=== PATIENT | female | born 1990 | race Caucasian/White ===

== ENCOUNTER 2016-08-12 20:43 | Emergency (ER) | payer OTHER ==
[~2016-08-12] VITALS: Ht 154.9 cm; Wt 55.2 kg
[2016-08-12 20:46] VITALS: TEMP 37; Ht 154.9 cm; Wt 55.2 kg
[2016-08-12] MEDS ORDERED: BUDESONIDE 90 MCG INH INH STA (20:57)
[2016-08-12] MEDS ORDERED: ALBUT/IPRATROP 3MG/0.5MG NEB 3 ML VIAL INH STA (20:57)
--- NOTE | 2016-08-12 21:35 | DIAGNOSTIC IMAGING REPORT ---
TWO VIEW CHEST CLINICAL HISTORY: Cough and fever. FINDINGS: PA and lateral chest radiographs are compared to study dated 02/29/2016. The cardiomediastinal silhouette is unremarkable. The lungs and pleural spaces are clear. There is no pneumothorax. The bony thorax appears intact. IMPRESSION: No active disease in the chest. Electronically signed by: Parth Garcia M.D. 08/12/2016 9:34 PM Dictated Date/Time: 08/12/2016 9:33 PM
[2016-08-12] MEDS ORDERED: AZITHROMYCIN 250 MG TAB PO STA (21:45)
[2016-08-12] MEDS ORDERED: AZIT250T PO (21:48)
[2016-08-12 22:00] VITALS: BP 110/72; PULSE 87; O2SAT 96
--- NOTE | 2016-08-12 22:32 | EMERGENCY ROOM VISIT NOTE ---
History Report prepared by Shine: Radha Phan Under the Supervision of: Dr. Armaan Braga M.D. First contact with patient: 20:51 Chief Complaint: SHORTNESS OF BREATH Stated Complaint: SOB, WHEEZING History of Present Illness The patient is a 26 year old female who presents to the Emergency Room with complaints of worsening shortness of breath that started yesterday. The patient states that she has been experiencing coughing and rhinorrhea for the past month. The cough is productive in the morning with brownish greenish sputum. She was seen at Urgent Care for her symptoms and they diagnosed her with a viral infection. She has not been on any antibiotics. The patient has a history of asthma. The patient is not on steroids and she does not have a steroid inhaler at home. She also does not have a nebulizer at home. Additionally, the patient is diabetic and she states that her sugars have been high recently. She states that s her sugars have been in the 300s. The patient denies any chance of . Source of History: patient Onset: yesterday Position: chest Quality: other (shortness of breath) Timing: worsening Associated Symptoms: + cough (productive in the morning ) Note: rhinorrhea Review of Systems See HPI for pertinent positives & negatives. A total of 10 systems reviewed and were otherwise negative. Past Medical & Surgical Medical Problems: (1) ASTHMA, UNSPECIFIED (2) DIAB EUGENE WO COMPL, TYPE I [JUVENILE TYPE], NOT UNCNTRLD (3) DIAB W KETOACIDOSIS, TYPE I [JUVENILE TYPE], UNCONTROLLED (4) DIAB W KETOACIDOSIS, TYPE II OR UNSPEC TYPE, NOT UNCNTRLD (5) DKA, type 1 Family History Diabetes mellitus Heart disease Social History Smoking Status: Never Smoker Alcohol Use: none Drug Use: none Marital Status: single Housing Status: lives alone Occupation Status: employed, student Current/Historical Medications Scheduled Amphetamine-Dextroamphetamine 10MG (Adderall 10MG), 10 MG PO DAILY IN AFTERNOON Amphetamine-Dextroamphetamine 20MG (Adderall Xr 20MG), 20 MG PO QAM Azithromycin (Zithromax), 250 MG PO DAILY Control Pills ( Control Pills), 1 TAB PO DAILY Budesonide (Inhalation) (Pulmicort Flexhaler), 2 PUFFS INH BID Insulin Aspart (novoLOG INSULIN PUMP ), 1 EA N/A UD Vortioxetine HBr (Trintellix), 10 MG PO DAILY Allergies Coded Allergies: Penicillins (Verified Allergy, Severe, ANAPHYLACTIC, 02/28/16) Sulfa Antibiotics (Verified Allergy, Unknown, HIVES, 08/12/16) Physical Exam Vital Signs Date Time Temp Pulse Resp B/P Pulse Ox O2 Delivery O2 Flow Rate FiO2 08/12/16 22:00 87 18 110/72 96 08/12/16 20:46 37.0 92 16 100/65 94 Room Air Physical Exam Constitutional: Vital signs reviewed. Eyes: Pupils are equal round reactive to light. Conjunctiva are noninjected. ENT: Pharynx is clear without erythema or exudate. Mucous membranes are moist. Neck supple without meningeal signs. Respiratory: Diffuse wheezing bilaterally. Breath sounds are equal bilaterally. Cardiovascular: Regular rate and rhythm. No rubs or gallops. GI: Soft, nondistended and nontender. Bowel sounds are present. Musculoskeletal: No peripheral edema. No lower extremity tenderness. Integumentary: No cyanosis. Neurological: The patient is awake and alert. No focal deficits. Psychiatric: Normal affect. Medical Decision & Procedures ER Provider Diagnostic Interpretation: X-ray results as stated below per interpretation by me and the radiologist: TWO VIEW CHEST IMPRESSION: No active disease in the chest. Electronically signed by: Parth Garcia M.D. 08/12/2016 9:34 PM Dictated Date/Time: 08/12/2016 9:33 PM Medications Administered Medications (Trade) Dose Ordered Sig/Ninoska Route Start Time Stop Time Status Last Admin Dose Admin Albuterol/ Ipratropium (Duoneb) 3 ml NOW STAT INH 08/12/16 20:57 08/12/16 20:59 DC 08/12/16 21:07 3 ML Budesonide (Pulmicort Inhaler) 2 puffs ONE STAT INH 08/12/16 20:57 08/12/16 20:59 DC 08/12/16 21:15 2 PUFFS Azithromycin (Zithromax Tab) 500 mg NOW STAT PO 08/12/16 21:45 08/12/16 21:46 DC 08/12/16 21:58 500 MG ED Course 2051: The patient was evaluated in room C10. A complete history and physical exam was performed. 2056: Ordered Budesonide 2 puffs INH, DuoNeb 3 ml INH 2141: Upon reevaluation, the patient appeared to have improvement of her symptoms. On reexamination, she had no wheezing. I discussed toncaleb's findings with her. She verbalized agreement of the treatment plan. She was discharged home. 2144: Ordered Azithromycin 500 mg PO Medical Decision This is a 26-year-old female who presents with shortness of breath and cold symptoms. Differential diagnosis includes acute asthma exacerbation, pneumonia , bronchitis, URI. I did perform a limited focused review of portions of the patient's old chart on the electronic medical record. The patient has had no recent pertinent visits to this hospital. I did evaluate the patient as noted above. She is wheezing diffusely. I did treat her with a DuoNeb. She was also given a Pulmicort inhaler. She declined testing for prior to x-ray. I did order and personally review the patient's chest x-ray as described above. There is no evidence of pneumonia. I did reassess the patient. She has no evidence of wheezing. She is feeling much better. I did discuss the chest x-ray with her. I did recommend antibiotic treatment given the length of her symptoms and the color of her sputum and comorbidity. She was given Zithromax here and discharged home with a prescription for 4 more days of Zithromax. She will continue using the Pulmicort inhaler twice a day. She will follow with her doctor. Impression Primary Impression: Acute asthma exacerbation Additional Impression: Bronchitis Scribe Attestation The scribe's documentation has been prepared under my direct and personally reviewed by me in its entirety. I confirm that the note above accurately reflects all work, treatment, procedures, and medical decision making performed by me. Departure Information Dispostion Home / Self-Care Prescriptions Azithromycin (Zithromax) 250 Mg Tab 250 MG PO DAILY, #4 TAB Prov: Armaan Braga M.D. 08/12/16 Referrals No Doctor, Assigned (PCP) Forms HOME CARE DOCUMENTATION FORM, IMPORTANT VISIT INFORMATION Patient Instructions Asthma - [facility], ED Bronchitis Abx Tx, My [facility] Additional Instructions You have been examined and treated today on an emergency basis only. This is not a substitute for, or an effort to provide, complete comprehensive medical care. It is impossible to recognize and treat all injuries or illnesses in a single emergency department visit. It is therefore important that you follow up closely with your physician. Call as soon as possible for an appointment. Return for worsening symptoms or if you develop fever, vomiting, or any other concerning symptoms. Use Pulmicort twice a day Problem Qualifiers Primary Impression: Acute asthma exacerbation Asthma severity: unspecified severity Qualified Codes: J45.901 - Unspecified asthma with (acute) exacerbation
[2016-08-28] MEDS ORDERED: AMPH10TA2 PO (01:31)
[2016-08-28] MEDS ORDERED: AMPH20CA3 PO (19:34)
[2016-10-03] MEDS ORDERED: BCPILLS PO (02:28)
[2016-10-03] MEDS ORDERED: AMPH30CA3 PO (17:34)
[2016-10-03] MEDS ORDERED: PROP10TA7 PO (17:34)
[2016-10-03] MEDS ORDERED: VORT1TAB PO (17:34)
[2016-10-03] MEDS ORDERED: PRAZ2CAP PO (17:34)
[2016-10-03] MEDS ORDERED: INSPMPNVLG (19:34)
== END 2016-08-12 22:00 | disposition home or self-care (01) ==
LOC: C.EDB 20:45 → C.EDC 22:00
DX: J45.901 Unspecified asthma with (acute) exacerbation (principal); J40 Bronchitis, not specified as acute or chronic; E10.9 Type 1 diabetes mellitus without complications; Z79.4 Long term (current) use of insulin; Z79.899 Other long term (current) drug therapy; Z88.0 Allergy status to penicillin; Z88.2 Allergy status to sulfonamides; Z83.3 Family history of diabetes mellitus; Z82.49 Family history of ischemic heart disease and other diseases of the circulatory system

== ENCOUNTER 2016-08-28 19:52 | Emergency (ER) | payer OTHER ==
[~2016-08-28] VITALS: Ht 154.9 cm; Wt 54.2 kg
[~2016-08-28 19:52] MED LIST: AMPH10TA2 PO; AMPH20CA3 PO; AZIT250T PO
[2016-08-28 20:01] VITALS: Ht 154.9 cm; Wt 54.2 kg
[2016-08-28] MEDS ORDERED: AMOX250C3 PO (20:42)
[2016-08-28] MEDS ORDERED: ALBUTEROL 0.083% NEBU SOLN 3 ML VIAL INH STA (20:53)
[2016-08-28] MEDS ORDERED: SODIUM CHLORIDE 0.9% 1000ML 2,000 ML IV STA (20:53)
--- NOTE | 2016-08-28 21:10 | DIAGNOSTIC IMAGING REPORT ---
SINGLE VIEW CHEST CLINICAL HISTORY: Cough FINDINGS: An AP, portable, upright chest radiograph is compared to study dated 08/12/2016. The cardiomediastinal silhouette is unremarkable. The lungs and pleural spaces are clear. No pneumothorax is seen. The bony thorax is grossly intact. IMPRESSION: No active disease in the chest. Electronically signed by: Parth Garcia M.D. 08/28/2016 9:09 PM Dictated Date/Time: 08/28/2016 9:09 PM
[2016-08-28 21:16] VITALS: TEMP 37.3
[2016-08-28] MEDS ORDERED: VORT10TA12 PO (21:22)
[2016-08-28] MEDS ORDERED: BUDE180I INH (21:22)
[2016-08-28 21:38] LABS: BASO % 0.3 %; BASO ABS # 0.03 K/uL (0-0.2); COMPLETE YES; EOS % 3.1 %; HEMATOCRIT 37.9 % (37-47); IG% 0.4 %; LYMPH % 13.9 %; LYMPH ABS # 1.65 K/uL (1.2-3.4); MEAN CELL VOLUME 92.2 fL (80-100); MEAN CORPUSCULAR HEMOGLOBIN 32.6 pg (25-34); MEAN CORPUSCULAR HGB CONC 35.4 g/dl (32-36); MEAN PLATELET VOLUME 10.2 fL (7.4-10.4); MONO % 9.6 %; NEUT % 72.7 %; PLATELET COUNT 214 K/uL (130-400); RED BLOOD COUNT 4.11 M/uL (4.2-5.4); WHITE BLOOD COUNT 11.83 K/uL (4.8-10.8)
[2016-08-28] MEDS ORDERED: NovoLIN-R INSULIN PER UNIT CHARGE SC STA (21:42)
[2016-08-28 21:58] LABS: VEN BLOOD GAS BASE EXCESS -0.6 mmol/L; VENOUS BLOOD GAS PCO2 51 mmHg (38.0-50.0); VENOUS BLOOD GAS PO2 30 mmHg
[2016-08-28 21:59] LABS: VEN BLD GAS O2 SATURATION < 60.0 %
[2016-08-28 22:02] LABS: ALKALINE PHOSPHATASE 106 U/L (45-117); ALT/SGPT 19 U/L (12-78); AST/SGOT 9 U/L (15-37); BLOOD UREA NITROGEN 14 mg/dl (7-18); BUN/CREATININE RATIO 16.1 (10-20); CALCIUM 8.8 mg/dl (8.5-10.1); CARBON DIOXIDE 23 mmol/L (21-32); CHLORIDE 102 mmol/L (98-107); CREATININE 0.88 mg/dl (0.60-1.20); GLUCOSE 564 mg/dl (70-99); POTASSIUM 4.3 mmol/L (3.5-5.1); SODIUM 134 mmol/L (136-145)
[2016-08-28 22:14] LABS: BETA-HYDROXYBUTYRATE 1.09 mg/dL (0.2-2.81)
[2016-08-28 22:51] LABS: URINE APPEARANCE CLEAR (CLEAR); URINE BILIRUBIN NEG (NEG); URINE COLOR YELLOW; URINE EPITHELIAL CELL AUTO 20-30 /lpf (0-5); URINE NITRITE NEG (NEG); URINE PH 6.5 (4.5-7.5); URINE SPECIFIC GRAVITY 1.033 (1.000-1.030); UROBILINOGEN NEG (NEG)
[2016-08-28 22:54] LABS: MANUAL MICROSCOPIC REQUIRED? NO; REVIEW REQ? NO
[2016-08-28 23:09] VITALS: BP 128/71; PULSE 71; O2SAT 98
--- NOTE | 2016-08-28 23:09 | EMERGENCY ROOM VISIT NOTE ---
History Report prepared by Shine: Hussein Peña Under the Supervision of: Dr. Abhijit Mcintyre D.O. First contact with patient: 20:45 Chief Complaint: ILLNESS Stated Complaint: SINUSES, WHEEZING, CHEST TIGHTNESS, HYPERGLYCEMIA History of Present Illness The patient is a 26 year old female who presents to the Emergency Room with complaints of a persistent illness beginning about 10 days ago. She notes she was seen by urgent care yesterday and was put on Augmentin. She complains of shortness of breath with some wheezing, chest pain since yesterday, and notes her blood sugar was elevated. She admits to having Type 1 diabetes, and took a bolus of 5.5 units of insulin about 1 hour ago. The patient notes she has not been eating much, but has been urinating frequently. She denies having any pain or burning with urination. She admits to also having abdominal pain, but denies having any fever or back pain. She reports her last menstrual period was 3 weeks ago. The patient reports having a history of asthma, but does not take steroids. She has never been intubated for her asthma, but was hospitalized once as a child. She adds she has a past history of DKA. She denies any nausea or vomiting. Source of History: patient Onset: 10 days ago Position: other (global) Quality: other (illness) Timing: other (persistent) Associated Symptoms: + SOB, + abdominal pain, + chest pain, + urinary symptoms (increased urination, butnot burning or pain), No back pain, No fevers Review of Systems See HPI for pertinent positives & negatives. A total of 10 systems reviewed and were otherwise negative. Past Medical & Surgical Medical Problems: (1) ASTHMA, UNSPECIFIED (2) DIAB EUGENE WO COMPL, TYPE I [JUVENILE TYPE], NOT UNCNTRLD (3) DIAB W KETOACIDOSIS, TYPE I [JUVENILE TYPE], UNCONTROLLED (4) DIAB W KETOACIDOSIS, TYPE II OR UNSPEC TYPE, NOT UNCNTRLD (5) DKA, type 1 Family History Diabetes mellitus Heart disease Social History Smoking Status: Never Smoker Alcohol Use: none Drug Use: none Marital Status: single Housing Status: lives alone Occupation Status: employed, student Current/Historical Medications Scheduled Amoxicillin (Amoxil), 1 CAP PO BID Amphetamine-Dextroamphetamine 10MG (Adderall 10MG), 10 MG PO DAILY IN AFTERNOON Amphetamine-Dextroamphetamine 20MG (Adderall Xr 20MG), 20 MG PO QAM Control Pills ( Control Pills), 1 TAB PO DAILY Budesonide (Inhalation) (Pulmicort Flexhaler), 2 PUFFS INH BID Insulin Aspart (novoLOG INSULIN PUMP ), 1 EA N/A UD Vortioxetine HBr (Trintellix), 10 MG PO DAILY Allergies Coded Allergies: Penicillins (Verified Allergy, Severe, ANAPHYLACTIC, 02/28/16) Sulfa Antibiotics (Verified Allergy, Unknown, HIVES, 08/12/16) Physical Exam Vital Signs Date Time Temp Pulse Resp B/P Pulse Ox O2 Delivery O2 Flow Rate FiO2 08/28/16 23:09 71 18 128/71 98 08/28/16 21:27 73 08/28/16 21:16 37.3 76 18 134/79 98 Room Air 08/28/16 20:01 37.0 79 18 127/80 96 Room Air Physical Exam GENERAL: Sitting in bed, non-productive cough, no acute distress, non-toxic HEAD: Mild tenderness to the maxillary and frontal sinuses. EARS: TMs clear bilaterally. EYE EXAM: normal conjunctiva OROPHARYNX: no exudate, no erythema, lips, buccal mucosa, and tongue normal and mucous membranes are moist NECK: supple, no nuchal rigidity, no adenopathy, non-tender LUNGS: Wheezing in bilateral lung haji. Normal chest wall mechanics HEART: no murmurs, S1 normal and S2 normal ABDOMEN: abdomen soft, non-tender, normo-active bowel sounds, no masses, no rebound or guarding. BACK: Back is symmetrical on inspection and there is no deformity, no midline tenderness, no CVA tenderness. SKIN: no rashes and no bruising UPPER EXTREMITIES: upper extremities are grossly normal. LOWER EXTREMITIES: No pitting edema. Calves equal bilaterally. NEURO EXAM: Normal sensorium, cranial nerves II-XII grossly intact, normal speech, no gross weakness of arms, no gross weakness of legs. Gross sensation intact. Medical Decision & Procedures ER Provider Diagnostic Interpretation: Radiology results have been interpreted by the radiologist and reviewed by me. SINGLE VIEW CHEST FINDINGS: An AP, portable, upright chest radiograph is compared to study dated 08/12/2016. The cardiomediastinal silhouette is unremarkable. The lungs and pleural spaces are clear. No pneumothorax is seen. The bony thorax is grossly intact. IMPRESSION: No active disease in the chest. Electronically signed by: Parth Garcia M.D. 08/28/2016 9:09 PM Dictated Date/Time: 08/28/2016 9:09 PM Laboratory Results 08/28/16 21:16 Red Blood Count 4.11, Mean Corpuscular Volume 92.2, Mean Corpuscular Hemoglobin 32.6, Mean Corpuscular Hemoglobin Concent 35.4, Mean Platelet Volume 10.2, Neutrophils (%) (Auto) 72.7, Lymphocytes (%) (Auto) 13.9, Monocytes (%) (Auto) 9.6, Eosinophils (%) (Auto) 3.1, Basophils (%) (Auto) 0.3, Neutrophils # (Auto) 8.60, Lymphocytes # (Auto) 1.65, Monocytes # (Auto) 1.13, Eosinophils # (Auto) 0.37, Basophils # (Auto) 0.03 08/28/16 21:16 Test 08/28/16 21:16 08/28/16 21:18 08/28/16 21:49 08/28/16 22:20 White Blood Count 11.83 K/uL (4.8-10.8) Red Blood Count 4.11 M/uL (4.2-5.4) Hemoglobin 13.4 g/dL (12.0-16.0) Hematocrit 37.9 % (37-47) Mean Corpuscular Volume 92.2 fL (80-100) Mean Corpuscular Hemoglobin 32.6 pg (25-34) Mean Corpuscular Hemoglobin Concent 35.4 g/dl (32-36) Platelet Count 214 K/uL (130-400) Mean Platelet Volume 10.2 fL (7.4-10.4) Neutrophils (%) (Auto) 72.7 % Lymphocytes (%) (Auto) 13.9 % Monocytes (%) (Auto) 9.6 % Eosinophils (%) (Auto) 3.1 % Basophils (%) (Auto) 0.3 % Neutrophils # (Auto) 8.60 K/uL (1.4-6.5) Lymphocytes # (Auto) 1.65 K/uL (1.2-3.4) Monocytes # (Auto) 1.13 K/uL (0.11-0.59) Eosinophils # (Auto) 0.37 K/uL (0-0.5) Basophils # (Auto) 0.03 K/uL (0-0.2) RDW Standard Deviation 42.4 fL (36.4-46.3) RDW Coefficient of Variation 12.6 % (11.5-14.5) Immature Granulocyte % (Auto) 0.4 % Immature Granulocyte # (Auto) 0.05 K/uL (0.00-0.02) Anion Gap 9.0 mmol/L (3-11) Est Creatinine Clear Calc Drug Dose 74.3 ml/min Estimated GFR () 106.6 Estimated GFR (Non- 92.0 BUN/Creatinine Ratio 16.1 (10-20) Calcium Level 8.8 mg/dl (8.5-10.1) Total Bilirubin 0.2 mg/dl (0.2-1) Direct Bilirubin < 0.1 mg/dl (0-0.2) Aspartate Amino Transf (AST/SGOT) 9 U/L (15-37) Alanine Aminotransferase (ALT/SGPT) 19 U/L (12-78) Alkaline Phosphatase 106 U/L (45-117) Troponin I < 0.015 ng/ml (0-0.045) Total Protein 7.1 gm/dl (6.4-8.2) Albumin 3.3 gm/dl (3.4-5.0) Beta-Hydroxybutyric Acid 1.09 mg/dL (0.2-2.81) Influenza Type A Antigen Neg for Influ A (NEG) Influenza Type B Antigen Neg for Influ B (NEG) Venous Blood pH 7.33 (7.36-7.41) Venous Blood Partial Pressure CO2 51 mmHg (38.0-50.0) Venous Blood Partial Pressure O2 30 mmHg Venous Blood HCO3 26 mmol/L Venous Blood Oxygen Saturation < 60.0 % Venous Blood Base Excess -0.6 mmol/L Urine Color YELLOW Urine Appearance CLEAR (CLEAR) Urine pH 6.5 (4.5-7.5) Urine Specific [place] 1.033 (1.000-1.030) Urine Protein NEG (NEG) Urine Glucose (UA) 3+ (NEG) Urine Ketones NEG (NEG) Urine Occult Blood NEG (NEG) Urine Nitrite NEG (NEG) Urine Bilirubin NEG (NEG) Urine Urobilinogen NEG (NEG) Urine Leukocyte Esterase NEG (NEG) Urine WBC (Auto) 1-5 /hpf (0-5) Urine RBC (Auto) 0-4 /hpf (0-4) Urine Hyaline Casts (Auto) 1-5 /lpf (0-5) Urine Epithelial Cells (Auto) 20-30 /lpf (0-5) Urine Bacteria (Auto) NEG (NEG) Test 08/28/16 22:44 Bedside Glucose 487 mg/dl (70-90) Laboratory results per my review. Medications Administered Medications (Trade) Dose Ordered Sig/Ninoska Route Start Time Stop Time Status Last Admin Dose Admin Albuterol Sulfate 2.5 mg 2.5 mg NOW STAT INH 08/28/16 20:53 08/28/16 20:55 DC 08/28/16 21:28 2.5 MG Sodium Chloride (Nss 1000ml) 2,000 ml @ 999 mls/hr Q2H1M STAT IV 08/28/16 20:53 08/28/16 22:53 DC 08/28/16 20:53 999 MLS/HR Insulin Human Regular (novoLIN-R U-100 PER UNIT) 10 units NOW STAT SC 08/28/16 21:42 08/28/16 21:44 DC 08/28/16 22:05 10 UNITS Albuterol (Ventolin Hfa Inhaler) 2 puffs NOW ONCE INH 08/28/16 23:15 08/28/16 23:16 08/28/16 23:06 2 PUFFS ECG Indication: other (illness) Rate (beats per minute): 73 Rhythm: sinus rhythm Findings: no ectopy, other (normal axis; septal Q wave) Comparison ECG Date: 09/13/15 Change: [place] has not changed. New Q wave in v2. ED Course ED COURSE: Vital signs were reviewed and showed normal. The patients medical record was reviewed The above diagnostic studies were performed and reviewed. ED treatments and interventions as stated above. 2046: The patient was evaluated in room C1A. A complete history and physical examination was performed. 2052: Ordered NSS 2,000 ml @ 999 mls/hr IV, and Albuterol Sulfate 2.5 mg INH. 2141: Ordered Insulin Human Regular 10 units SC. 2299: Upon reevaluation, the patient is doing well.I discussed my findings with the patient and she understands and agrees with the treatment plan. Based on the patients age, coexisting illnesses, exam and lab findings the decision to treat as an outpatient was made. The patient remained stable while under my care. The patient appeared well at the time of discharge. Medical Decision Differential diagnoses includes but is not limited to pneumonia, bronchitis, COPD/Asthma exacerbation, pneumothorax, pulmonary embolism, congestive heart failure, acute coronary syndrome Patient is a 26-year-old female who presents the ER for congestion which has now tracked down to her chest which is a history of asthma and now has a nonproductive cough and shortness of breath. She notes that she does have some chest pain which has been present since this morning. Vitals were unremarkable. She does have bilateral wheezing which improved with a neb treatment. No significant leukocytosis or anemia. BMP was unremarkable along with LFTs, bilirubin and troponin. BSG was 564. This trended down to 480. She is given 2 L of fluid and 10 units of subcutaneous insulin. UA shows no infection or ketones. No anion gap. Influenza was negative. She is no nausea vomiting. PH is 7.33 but her CO2 is 51 and this is compensated. She is not in DKA or HHNK. Patient was discharged to continue her Augmentin and follow-up with her PCP is now patient. She was given an inhaler prior to discharge as she has run out. Discussed with Pt concerning signs and symptoms to watch out for. Pt was instructed to follow up with their PCP and discussed with the patient their option to return to the ED at anytime for persistent or worsening symptoms. The appropriate anticipatory guidance and out-patient management, including indications for return to the emergency department, were explained at length to the patient and understood. Impression Primary Impression: Bronchitis Additional Impression: Hyperglycemia Scribe Attestation The scribe's documentation has been prepared under my direction and personally reviewed by me in its entirety. I confirm that the note above accurately reflects all work, treatment, procedures, and medical decision making performed by me. Departure Information Dispostion Home / Self-Care Referrals Abby Leach D.O. (PCP) Patient Instructions Asthma - [facility], ED Hyperglycemia Diabetic, My [facility] Additional Instructions Please follow up with your primary care doctor with in the next 24 hours. Any worsening of your symptoms, please return to the ED immediately. This includes fevers greater than 100.4, worsening shortness of breath, chest pain, passing out, uncontrolled blood sugars, or any other concerning signs or symptoms from your standpoint. Please continue your previous perception for antibiotics. Please also continue your inhalers and nebulizers. Problem Qualifiers
[2016-08-28] MEDS ORDERED: ALBUTEROL HFA 8 GM INHALER INH ONE (23:15)
[2016-10-03] MEDS ORDERED: BCPILLS PO (02:28)
[2016-10-03] MEDS ORDERED: PROP10TA7 PO (17:34)
[2016-10-03] MEDS ORDERED: AMPH30CA3 PO (17:34)
[2016-10-03] MEDS ORDERED: PRAZ2CAP PO (17:34)
[2016-10-03] MEDS ORDERED: VORT1TAB PO (17:34)
[2016-10-03] MEDS ORDERED: INSPMPNVLG (19:34)
== END 2016-08-28 23:10 | disposition home or self-care (01) ==
LOC: C.EDB 19:53 → C.EDC 23:10
DX: J40 Bronchitis, not specified as acute or chronic (principal); E10.65 Type 1 diabetes mellitus with hyperglycemia; Z79.4 Long term (current) use of insulin; Z79.899 Other long term (current) drug therapy; Z88.0 Allergy status to penicillin; Z88.2 Allergy status to sulfonamides; Z83.3 Family history of diabetes mellitus; Z82.49 Family history of ischemic heart disease and other diseases of the circulatory system

== ENCOUNTER → 2016-09-01 | Outpatient (CLI) | payer OTHER ==
[~2016-09-01] MED LIST changes: +AMOX250C3 PO; +AMPH30CA3 PO; -AZIT250T PO; +BCPILLS PO; +BUDE180I INH; +CLIN300C2 PO; +DOXY1CAP PO; +INSPMPNVLG; +ONDA4TAB46 PO; +PRAZ2CAP PO; +PROP10TA7 PO; +RALT400T PO; +TRVHP PO; +VORT10TA12 PO; +VORT1TAB PO
--- NOTE | 2016-09-01 17:47 | DIAGNOSTIC IMAGING REPORT ---
CHEST 2 VIEWS ROUTINE CLINICAL HISTORY: Cough. COMPARISON STUDY: Chest radiograph August 28, 2016. FINDINGS: Lung volumes are normal. Lungs are clear. There is no pneumothorax or pleural effusion. Cardiac size is normal. Mediastinal contours are normal. There is no evidence of pulmonary edema. IMPRESSION: No acute cardiopulmonary findings. Electronically signed by: Aleksandr Ellis M.D. 09/01/2016 5:46 PM Dictated Date/Time: 09/01/2016 5:46 PM
== END | disposition home or self-care (01) ==
LOC: C.RAD 17:26
PROVIDERS: ATTEND Physician Assistant Medical
DX: R05 Cough (principal)

== ENCOUNTER 2016-10-06 23:15 | Emergency (ER) | payer OTHER ==
[~2016-10-06] VITALS: Ht 154.9 cm; Wt 52.3 kg
[~2016-10-06 23:15] MED LIST changes: -AMOX250C3 PO; -AMPH10TA2 PO; -AMPH20CA3 PO; -BUDE180I INH; -CLIN300C2 PO; -DOXY1CAP PO; -ONDA4TAB46 PO; -RALT400T PO; -TRVHP PO; -VORT10TA12 PO
[2016-10-06 23:24] VITALS: Ht 154.9 cm; Wt 52.3 kg
[2016-10-07 00:28] VITALS: TEMP 37
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
[2016-10-07] MEDS ORDERED: DOXYCYCLINE HYCLATE 100 MG CAP PO STA (02:54)
[2016-10-07] MEDS ORDERED: LEVONORGESTREL (EMERGENCY OC) 1.5 MG TAB PO STA (02:54)
[2016-10-07] MEDS ORDERED: CIPROFLOXACIN 500 MG TAB PO STA (02:55)
[2016-10-07] MEDS ORDERED: DOXY1CAP PO (03:03)
[2016-10-07] MEDS ORDERED: HIV POST EXPOSURE PROPHYLAXIS KIT STA (03:04)
[2016-10-07] MEDS ORDERED: ONDA4TAB46 PO (03:05)
[2016-10-07] MEDS ORDERED: RALT400T PO (03:05)
[2016-10-07] MEDS ORDERED: ONDANSETRON 4MG OD TAB PO STA (03:05)
[2016-10-07] MEDS ORDERED: TRVHP PO (03:05)
[2016-10-07 04:18] VITALS: BP 128/86; PULSE 78; O2SAT 98
== END 2016-10-07 04:19 | disposition home or self-care (01) ==
LOC: C.EDB 23:16 → C.EDC 10-07 04:19
DX: Z04.41 Encounter for examination and observation following alleged adult rape (principal); E11.9 Type 2 diabetes mellitus without complications; J45.909 Unspecified asthma, uncomplicated; F17.200 Nicotine dependence, unspecified, uncomplicated; Z79.899 Other long term (current) drug therapy; Z88.0 Allergy status to penicillin; Z88.2 Allergy status to sulfonamides; Z83.3 Family history of diabetes mellitus; Z82.49 Family history of ischemic heart disease and other diseases of the circulatory system

== ENCOUNTER 2017-02-05 12:40 | Emergency (ER) | payer OTHER ==
[~2017-02-05] VITALS: Ht 154.9 cm; Wt 55.9 kg
[~2017-02-05 12:40] MED LIST changes: +DOXY1CAP PO; +ONDA4TAB46 PO; +RALT400T PO; +TRVHP PO
[2017-02-05 12:46] VITALS: TEMP 37; Ht 154.9 cm; Wt 55.9 kg
[2017-02-05] MEDS ORDERED: CLIN300C2 PO (13:12)
[2017-02-05 13:19] VITALS: BP 122/76; PULSE 83; O2SAT 98
--- NOTE | 2017-02-05 13:22 | EMERGENCY ROOM VISIT NOTE ---
History First contact with patient: 13:04 Chief Complaint: OTHER COMPLAINT Stated Complaint: SENSITIVE INFECTED FACIAL CYST History of Present Illness The patient is a 26 year old female who presents to the Emergency Room with complaints of right-sided facial pain for the past 3 weeks. The patient has had infected cysts in the past and this feels similar. She has followed up with her primary care physician regarding this, and completed a seven-day course of doxycycline with only minimal improvement of symptoms. The patient went to an urgent care clinic today where she was referred to dermatology, but does not have an appointment until April. The patient has not had fever or chills. She is diabetic. She rates her overall discomfort a 7/10. Review of Systems More than 10 systems were reviewed and otherwise negative with the exception of history of present illness. Past Medical/Surgical History Medical Problems: (1) ASTHMA, UNSPECIFIED (2) DIAB EUGENE WO COMPL, TYPE I [JUVENILE TYPE], NOT UNCNTRLD (3) DIAB W KETOACIDOSIS, TYPE I [JUVENILE TYPE], UNCONTROLLED (4) DIAB W KETOACIDOSIS, TYPE II OR UNSPEC TYPE, NOT UNCNTRLD (5) DKA, type 1 Family History Diabetes mellitus Heart disease Social History Smoking Status: Current Every Day Smoker Alcohol Use: none Drug Use: none Marital Status: single Housing Status: lives alone Occupation Status: employed, student Current/Historical Medications Scheduled Amphetamine-Dextroamphetamine 30MG (Adderall Xr 30MG), 30 MG PO QAM Control Pills ( Control Pills), 1 TAB PO DAILY Clindamycin Hcl (Cleocin), 300 MG PO QID Insulin Aspart (novoLOG INSULIN PUMP ), 1 EA N/A UD Vortioxetine HBr (Trintellix), 5 MG PO DAILY Scheduled PRN Ondansetron Hcl (Zofran), 4 MG PO Q6 PRN for Nausea Physical Exam Vital Signs Date Time Temp Pulse Resp B/P (MAP) Pulse Ox O2 Delivery O2 Flow Rate FiO2 02/05/17 12:46 37.0 93 16 127/78 98 Physical Exam VITALS: Vitals are noted on the nurse's note and reviewed by myself. Vital signs stable. GENERAL: Well-developed, well-nourished, white female, who is in no acute distress and resting comfortably. Patient is cooperative with the examination. HEART: Regular rate and rhythm without murmurs gallops or rubs. LUNGS: Clear to auscultation bilaterally without wheezes, rales or rhonchi. No retractions or accessory muscle use. NEURO: Patient was alert and oriented to person place and time. CN II through XII grossly intact. SKIN: The skin was with a right sided area of inflammation and tenderness measuring approximately 1.0 cm in diameter. Clinically this seems most likely an infected cyst without distinct abscess or fluctuance. There is no drainage. No appreciable lymphadenopathy. Medical Decision & Procedures ED Course Physical exam and history were performed. Nursing notes, EMR, and Medication List were personally reviewed. Patient appears to have a right-sided facial infection, likely from an infected cyst. This is been in place for roughly 3 weeks according to the patient. I do not feel obvious fluctuance and she has failed doxycycline. She is allergic to penicillin and sulfa, but has evidently tolerated clindamycin in the past. She will be started on this medication and given instructions to eat yogurt or take probiotics. I did discuss the possibility of C. difficile infection while on multiple antibiotics including clindamycin. The patient will also be given information for plastic surgery, as she may need excision of the cyst. The patient was otherwise asked to follow with her PCP or dermatology. She was invited back to the ER with any new, worsening, or concerning symptoms. The chart was completed utilizing [employer] Speech Voice Recognition Software. Grammatical errors, random word insertions, pronoun errors, and incomplete sentences are an occasional consequence of this system due to software limitations, ambient noise, and hardware issues. Any formal questions or concerns about the content, text, or information contained within the body of this dictation should be directly addressed to the provider for clarification. . Medical Decision Differential diagnosis: Etiologies such as cellulitis, abscess, MRSA infection, DVT, necrotizing fasciitis, dermatitis, drug eruption, as well as others were entertained.. Impression Primary Impression: Facial infection Departure Information Dispostion Home / Self-Care Condition GOOD Prescriptions Clindamycin Hcl (CLEOCIN) 300 Mg Cap 300 MG PO QID for 10 Days, #40 CAP Prov: Reece Bhandari PA-C 02/05/17 Referrals No Doctor, Assigned April Sanchez MD Forms HOME CARE DOCUMENTATION FORM, IMPORTANT VISIT INFORMATION Patient Instructions [facility] Additional Instructions You were seen and evaluated today on an emergency basis only. This is not a substitute for, or an effort to provide, complete comprehensive medical care. It is not possible to recognize and treat all injuries or illnesses in a single emergency department visit. For this reason it is recommended that you followup with your [employer] Machine Feeder or plastic surgery, Dr. Sanchez's office, for ongoing care and evaluation. For baseline pain relief you may alternate ibuprofen and acetaminophen every 4 hours for pain control. Take 600 mg ibuprofen (Advil) and then 4 hours later take 1000 mg acetaminophen (Tylenol). Do not take more than 3000 mg acetaminophen in a single day. Take clindamycin 300 mg 4 times daily for the next 10 days. This medicine can cause an upset stomach. We do recommend eating yogurt or taking a probiotic while on this medication. If you have severe diarrhea after starting this medicine please seek additional medical attention. You may apply warm compress 20 minutes on and 20 minutes off to the area. You are welcome to return to the emergency department anytime with new, worsening, or concerning symptoms.
== END 2017-02-05 13:20 | disposition home or self-care (01) ==
LOC: C.EDB 12:41 → C.EDD 13:20
DX: L08.9 Local infection of the skin and subcutaneous tissue, unspecified (principal); E10.9 Type 1 diabetes mellitus without complications; J45.909 Unspecified asthma, uncomplicated; Z83.3 Family history of diabetes mellitus; F17.210 Nicotine dependence, cigarettes, uncomplicated; Z79.3 Long term (current) use of hormonal contraceptives; Z79.4 Long term (current) use of insulin; Z79.899 Other long term (current) drug therapy

== ENCOUNTER 2017-08-24 02:13 | Emergency (ER) | payer OTHER ==
[~2017-08-24] VITALS: Ht 154.9 cm; Wt 49.8 kg
[~2017-08-24 02:13] MED LIST changes: -DOXY1CAP PO; +INSULIN GLARGINE SC SCH; +INSULIN GLARGINE SOLOSTAR 100 UNITS/ML 3 ML PEN SC SCH; -ONDA4TAB46 PO; -PRAZ2CAP PO; -PROP10TA7 PO; -RALT400T PO; -TRVHP PO
[2017-08-24 02:16] VITALS: Ht 154.9 cm; Wt 49.8 kg
[2017-08-24] MEDS ORDERED: SODIUM CHLORIDE 0.9% 1000ML 1,000 ML IV STA ×2 (02:29→04:00)
[2017-08-24 02:46] LABS: BASO % 0.1 %; BASO ABS # 0.01 K/uL (0-0.2); EOS % 0.1 %; EOS ABS # 0.01 K/uL (0-0.5); HEMOGLOBIN 14.4 g/dL (12.0-16.0); IG# 0.05 K/uL (0.00-0.02); LYMPH % 11.8 %; LYMPH ABS # 1.76 K/uL (1.2-3.4); MEAN CELL VOLUME 89.4 fL (80-100); MEAN CORPUSCULAR HGB CONC 36.9 g/dl (32-36); MEAN PLATELET VOLUME 10.2 fL (7.4-10.4); MONO % 9.1 %; MONO ABS # 1.36 K/uL (0.11-0.59); NEUT % 78.6 %; NEUT ABS # 11.69 K/uL (1.4-6.5); PLATELET COUNT 301 K/uL (130-400); RED CELL DISTRIBUTION WIDTH CV 11.6 % (11.5-14.5); RED CELL DISTRIBUTION WIDTH SD 37.7 fL (36.4-46.3); WHITE BLOOD COUNT 14.88 K/uL (4.8-10.8)
[2017-08-24 03:12] LABS: ALBUMIN 3.9 gm/dl (3.4-5.0); ALKALINE PHOSPHATASE 183 U/L (45-117); ALT/SGPT 26 U/L (12-78); AST/SGOT 13 U/L (15-37); BLOOD UREA NITROGEN 15 mg/dl (7-18); CALCIUM 9.3 mg/dl (8.5-10.1); CARBON DIOXIDE 24 mmol/L (21-32); CREATININE 0.96 mg/dl (0.60-1.20); GLUCOSE 563 mg/dl (70-99); LIPASE 107 U/L (73-393); SODIUM 129 mmol/L (136-145); TOTAL PROTEIN 7.6 gm/dl (6.4-8.2)
[2017-08-24] MEDS ORDERED: LANTUS PER UNIT CHARGE SQ STA ×2 (03:46)
[2017-08-24] MEDS ORDERED: INSULIN GLARGINE SC STA (03:55)
[2017-08-24] MEDS ORDERED: INSULIN ASPART SC STA (04:00)
[2017-08-24] MEDS ORDERED: INSULIN GLARGINE SOLOSTAR 100 UNITS/ML 3 ML PEN SC STA (04:06)
--- NOTE | 2017-08-24 04:59 | EMERGENCY ROOM VISIT NOTE ---
History First contact with patient: 02:50 Chief Complaint: HYPERGLYCEMIA Stated Complaint: FORGOT LANTUS,HI BG+KETONES FOR 48+HRS,BRONCHITIS Nursing Triage Summary: Pt ambulatory to triage reporting high blood sugar. Meter reading HIGH at home. pt reports she is visiting family from out of town and forgot to bring her Lantus and did not take it tonight. Pt states she was using insulin pump but "ran out of supplies, so switched yesterday". Pt reports she is on steriods for asthma currently and has been feeling "ill" for four days. Reports small-moderate ketones in urine for last 2 days. History of Present Illness The patient is a 27 year old female who presents to the Emergency Room with complaints of high blood sugars. The patient states that her blood sugars have been running high for the past 3-4 days, and her meter has read "high" today. She has had urine ketones for the past 2 days. The patient states she is currently on prednisone and has taken this for 3-4 days for an upper respiratory infection. She is additionally taking an antibiotic for this. She states that her respiratory symptoms have improved considerably. However, the prednisone seems to be increasing her blood sugars. She also states that she typically uses an insulin pump, however due to a recent move and insurance issues switched to using NovoLog pens. She is in town from [place] and forgot her Lantus there. She has increased her NovoLog dosage today but has still been unable to control her blood sugars. She denies abdominal pain, vomiting or respiratory difficulties. She denies fever/chills or urinary symptoms. Review of Systems A complete 10 point review of systems was reviewed with the patient with pertinent positives and negatives as per history of present illness. All else were negative. Past Medical/Surgical History Medical Problems: (1) ASTHMA, UNSPECIFIED (2) DIAB EUGENE WO COMPL, TYPE I [JUVENILE TYPE], NOT UNCNTRLD (3) DIAB W KETOACIDOSIS, TYPE I [JUVENILE TYPE], UNCONTROLLED (4) DIAB W KETOACIDOSIS, TYPE II OR UNSPEC TYPE, NOT UNCNTRLD (5) DKA, type 1 Family History Diabetes mellitus Heart disease Social History Smoking Status: Current Some Day Smoker Alcohol Use: none Drug Use: none Marital Status: single Housing Status: lives alone Occupation Status: employed, student Current/Historical Medications Scheduled Amphetamine-Dextroamphetamine 30MG (Adderall Xr 30MG), 30 MG PO QAM Control Pills ( Control Pills), 1 TAB PO DAILY Fluoxetine (Prozac), 40 MG PO DAILY Insulin Aspart (novoLOG INSULIN PUMP ), 1 EA N/A UD Levetiracetam (Keppra), 500 MG PO BID Physical Exam Vital Signs Date Time Temp Pulse Resp B/P (MAP) Pulse Ox O2 Delivery O2 Flow Rate FiO2 08/24/17 08:03 36.8 88 18 135/80 95 08/24/17 03:58 87 20 119/68 96 Room Air 08/24/17 02:16 36.8 99 16 126/78 97 Room Air Physical Exam VITALS: Vitals are noted on the nurse's note and reviewed by myself. Vital signs stable. GENERAL: This is a 27-year-old female, in no acute distress, nondiaphoretic, well-developed well-nourished. SKIN: The skin was without rashes. EARS: External auditory canals clear, tympanic membranes pearly cavanaugh without erythema or effusion bilaterally. EYES: Pupils equal round and reactive to light and accommodation. MOUTH: Mucous membranes moist. Tonsils are not enlarged. Pharynx without erythema or exudate. NECK: Supple without nuchal rigidity. No lymphadenopathy. HEART: Regular rate and rhythm without murmurs gallops or rubs. LUNGS: Clear to auscultation bilaterally without wheezes, rales or rhonchi. No retractions or accessory muscle use. ABDOMEN: Positive bowel sounds x 4. Soft, nontender to palpation. NEURO: Patient was alert and oriented to person place and time. Medical Decision & Procedures ER Provider Diagnostic Interpretation: CHEST 1 VIEW: No acute cardiopulmonary findings, no infiltrates. Laboratory Results 08/24/17 02:35 Red Blood Count 4.36, Mean Corpuscular Volume 89.4, Mean Corpuscular Hemoglobin 33.0, Mean Corpuscular Hemoglobin Concent 36.9, Mean Platelet Volume 10.2, Neutrophils (%) (Auto) 78.6, Lymphocytes (%) (Auto) 11.8, Monocytes (%) (Auto) 9.1, Eosinophils (%) (Auto) 0.1, Basophils (%) (Auto) 0.1, Neutrophils # (Auto) 11.69, Lymphocytes # (Auto) 1.76, Monocytes # (Auto) 1.36, Eosinophils # (Auto) 0.01, Basophils # (Auto) 0.01 08/24/17 06:06 Test 08/24/17 02:30 08/24/17 02:35 08/24/17 03:03 08/24/17 06:06 Urine Color YELLOW Urine Appearance CLEAR (CLEAR) Urine pH 6.0 (4.5-7.5) Urine Specific [place] 1.043 (1.000-1.030) Urine Protein NEG (NEG) Urine Glucose (UA) 3+ (NEG) Urine Ketones NEG (NEG) Urine Occult Blood NEG (NEG) Urine Nitrite NEG (NEG) Urine Bilirubin NEG (NEG) Urine Urobilinogen NEG (NEG) Urine Leukocyte Esterase NEG (NEG) White Blood Count 14.88 K/uL (4.8-10.8) Red Blood Count 4.36 M/uL (4.2-5.4) Hemoglobin 14.4 g/dL (12.0-16.0) Hematocrit 39.0 % (37-47) Mean Corpuscular Volume 89.4 fL (80-100) Mean Corpuscular Hemoglobin 33.0 pg (25-34) Mean Corpuscular Hemoglobin Concent 36.9 g/dl (32-36) Platelet Count 301 K/uL (130-400) Mean Platelet Volume 10.2 fL (7.4-10.4) Neutrophils (%) (Auto) 78.6 % Lymphocytes (%) (Auto) 11.8 % Monocytes (%) (Auto) 9.1 % Eosinophils (%) (Auto) 0.1 % Basophils (%) (Auto) 0.1 % Neutrophils # (Auto) 11.69 K/uL (1.4-6.5) Lymphocytes # (Auto) 1.76 K/uL (1.2-3.4) Monocytes # (Auto) 1.36 K/uL (0.11-0.59) Eosinophils # (Auto) 0.01 K/uL (0-0.5) Basophils # (Auto) 0.01 K/uL (0-0.2) RDW Standard Deviation 37.7 fL (36.4-46.3) RDW Coefficient of Variation 11.6 % (11.5-14.5) Immature Granulocyte % (Auto) 0.3 % Immature Granulocyte # (Auto) 0.05 K/uL (0.00-0.02) Total Bilirubin 0.3 mg/dl (0.2-1) Direct Bilirubin < 0.1 mg/dl (0-0.2) Aspartate Amino Transf (AST/SGOT) 13 U/L (15-37) Alanine Aminotransferase (ALT/SGPT) 26 U/L (12-78) Alkaline Phosphatase 183 U/L (45-117) Total Protein 7.6 gm/dl (6.4-8.2) Albumin 3.9 gm/dl (3.4-5.0) Lipase 107 U/L (73-393) Human Chorionic Gonadotropin, Qual NEG (NEG) Venous Blood pH 7.41 (7.36-7.41) Venous Blood Partial Pressure CO2 44 mmHg (38.0-50.0) Venous Blood Partial Pressure O2 59 mmHg Venous Blood HCO3 27 mmol/L Venous Blood Oxygen Saturation 89.6 % Venous Blood Base Excess 1.9 mEq/L Anion Gap 8.0 mmol/L (3-11) Est Creatinine Clear Calc Drug Dose 66.8 ml/min Estimated GFR () 94.1 Estimated GFR (Non- 81.2 BUN/Creatinine Ratio 14.6 (10-20) Calcium Level 8.5 mg/dl (8.5-10.1) Beta-Hydroxybutyric Acid 1.80 mg/dL (0.2-2.81) Test 08/24/17 07:58 Bedside Glucose 340 mg/dl (70-90) Medications Administered Medications (Trade) Dose Ordered Sig/Ninoska Route Start Time Stop Time Status Last Admin Dose Admin Sodium Chloride 1,000 ml @ 999 mls/hr Q1H1M STAT IV 08/24/17 02:29 08/24/17 03:29 DC 08/24/17 02:44 999 MLS/HR Sodium Chloride 1,000 ml @ 999 mls/hr Q1H1M STAT IV 08/24/17 04:00 08/24/17 05:00 DC 08/24/17 04:08 999 MLS/HR Insulin Aspart Prota 70%/Aspart 30% 8 units/ Syringe 0.08 ml @ 0 mls/min ONE STAT SC 08/24/17 04:00 08/24/17 04:08 DC 08/24/17 04:25 0.08 MLS/MIN Insulin Glargine (Lantus Solostar Pen) 23 units NOW STAT SC 08/24/17 04:06 08/24/17 04:07 DC 08/24/17 04:26 23 UNITS Insulin Human Regular (novoLIN-R U-100 PER UNIT) 6 units NOW STAT IV 08/24/17 06:57 08/24/17 07:00 DC 08/24/17 07:16 6 UNITS Ondansetron HCl (Zofran Odt) 4 mg ONE ONCE PO 08/24/17 07:30 08/24/17 07:31 DC 08/24/17 07:20 4 MG Acetaminophen (Tylenol Tab) 1,000 mg NOW STAT PO 08/24/17 07:16 08/24/17 07:17 DC 08/24/17 07:20 1,000 MG ED Course The patient was evaluated as above. Labs were drawn and IV access was obtained. Patient was medicated with 1 L normal saline solution. BSG was rechecked and was 570. Patient was given an additional 1 L normal saline solution, 23 units Lantus and 8 mg NovoLog. BSG was rechecked and was 589. At this time, repeat BMP was performed and glucose was found to be 596. Patient was given 6 units IV insulin, with improvement of BSG to 340. Discharge instructions were reviewed with the patient. The patient verbalized understanding of my assessment and treatment plan and was discharged home in good condition. Medical Decision Differential diagnosis includes hyperglycemia, DKA, occult infection, pneumonia , dehydration, among others. The patient is a 27-year-old female who presents today complaining of hyperglycemia. The patient is a type I diabetic. She is currently on a steroid for an upper respiratory infection. Additionally, she is here from out of town and has forgotten her Lantus. She typically uses an insulin pump but recently ran out of supplies and has been using NovoLog pens instead. I suspect the patient has been underdosing herself, as she admits she is not very good at doing the math in her head and is nervous to have a low blood sugar. Labs revealed mild leukocytosis of 14,000, likely secondary to the steroid use. There is no evidence of DKA. Anion gap is not elevated. VBG showed a normal pH. Urine showed glucose, but no ketones. Patient was monitored for several hours until glucose improved. She was persistently hyperglycemic even after fluids and NovoLog. I did speak with the pharmacist. She felt this was likely due to the patient's basal deficiency. Patient was given a dose of Lantus here as well as an additional dose to take tonight. She was advised to stop the prednisone. She is returning to [place] tomorrow and will be able to follow- up with her primary care provider at that time. She was instructed to return here if she has worsening of her symptoms. The patient's case was reviewed with Dr. Iverson, ED attending physician, who agreed with my assessment and treatment plan. Based on the patient's presentation and work up, I feel the patient is stable for outpatient treatment. The patient was educated to return to the emergency department for any worsening of their current condition or new/concerning symptoms. She will follow up with her PCP. Medication Reconcilliation Current Medication List: was personally reviewed by me Blood Pressure Screening Patient's blood pressure: Normal blood pressure Impression Primary Impression: Hyperglycemia Departure Information Dispostion Home / Self-Care Condition GOOD Referrals No Doctor, Assigned (PCP) Patient Instructions My [facility] Additional Instructions Use your NovoLog as directed. Make sure to check your blood sugars very frequently to keep them more controlled. Stop the prednisone. Use the Lantus as directed. You need to follow-up very closely with your primary care provider or specialist in [place]. Return here for persistent high blood sugars, vomiting, abdominal pain, trouble breathing or any other new/concerning symptoms.
--- NOTE | 2017-08-24 06:48 | DIAGNOSTIC IMAGING REPORT ---
CHEST ONE VIEW PORTABLE CLINICAL HISTORY: cough dyspnea COMPARISON STUDY: 09/01/2016 FINDINGS: The bones soft tissues and hemidiaphragms are normal. The cardiomediastinal silhouette is normal. The lungs are clear. The pulmonary vasculature is normal. IMPRESSION: Negative chest. The above report was generated using voice recognition software. It may contain grammatical, syntax or spelling errors. Electronically signed by: Grant Spicer M.D. 08/24/2017 6:47 AM Dictated Date/Time: 08/24/2017 6:47 AM
[2017-08-24 06:51] LABS: CALCIUM 8.5 mg/dl (8.5-10.1); CREATININE 0.97 mg/dl (0.60-1.20)
[2017-08-24] MEDS ORDERED: LEVE500T13 PO (06:57)
[2017-08-24] MEDS ORDERED: FLUO40CA8 PO (06:57)
[2017-08-24] MEDS ORDERED: NovoLIN-R INSULIN PER UNIT CHARGE IV STA (06:57)
[2017-08-24] MEDS ORDERED: ACETAMINOPHEN 500 MG TAB PO STA (07:16)
[2017-08-24] MEDS ORDERED: ONDANSETRON 4MG OD TAB PO ONE (07:30)
[2017-08-24 08:03] VITALS: BP 135/80; PULSE 88; TEMP 36.8; O2SAT 95
== END 2017-08-24 08:04 | disposition home or self-care (01) ==
LOC: C.EDB 02:15
DX: E10.65 Type 1 diabetes mellitus with hyperglycemia (principal); Z96.41 Presence of insulin pump (external) (internal); J45.909 Unspecified asthma, uncomplicated; Z83.3 Family history of diabetes mellitus; F17.210 Nicotine dependence, cigarettes, uncomplicated; Z79.4 Long term (current) use of insulin; Z79.3 Long term (current) use of hormonal contraceptives; Z79.899 Other long term (current) drug therapy